=== PATIENT | female | born 1990 | race Caucasian/White ===

== ENCOUNTER → 2020-05-03 | Outpatient (CLI) | payer SELFPAY | LOC: LAB SHORT 11:36 | DX: J06.9 Acute upper respiratory infection, unspecified (principal); Z20.828 Contact with and (suspected) exposure to other viral communicable diseases | CPT/HCPCS: U0003 ==

== ENCOUNTER → 2023-02-23 | Outpatient (CLI) | payer OTHER | LOC: LAB SHORT 15:20 → LAB 15:20 | DX: R82.90 Unspecified abnormal findings in urine (principal) | CPT/HCPCS: 87086 ==

== ENCOUNTER → 2023-03-30 | Outpatient (CLI) | payer OTHER ==
[2023-03-30 19:58] LABS: BASOPHILS ABSOLUTE AUTO 0.04 K/mm3 (0.00-0.23); BASOPHILS PERCENT AUTO 0 % (0-2); EOSINOPHILS ABSOLUTE AUTO 0.09 K/mm3 (0.00-0.68); EOSINOPHILS PERCENT AUTO 1 % (0-6); Hematocrit 40.7 % (33.0-51.0); IMMATURE GRAN ABSOLUTE AUTO 0.02 K/mm3 (0.00-0.10); IMMATURE GRAN PERCENT AUTO 0 % (0-1); LYMPHOCYTES ABSOLUTE AUTO 2.38 K/mm3 (0.84-5.20); LYMPHOCYTES PERCENT AUTO 27 % (21-46); MONOCYTES ABSOLUTE AUTO 0.52 K/mm3 (0.16-1.47); MONOCYTES PERCENT AUTO 6 % (4-13); Mean Corpuscular HGB 26.1 pg (26.0-34.0); Mean Corpuscular HGB Conc 31.9 g/dL (31.5-36.5); Mean Corpuscular Volume 82 fL (80-100); Mean Platelet Volume 12.7 fL (9.1-12.4); NEUTROPHILS ABSOLUTE AUTO 5.92 K/mm3 (1.96-9.15); NEUTROPHILS PERCENT AUTO 66 % (41-73); Platelet Count 193 K/mm3 (150-400); RDW Coefficient Variation 12.6 % (11.7-14.2); RDW Standard Deviation 37.4 fL (35.1-46.3); Red Blood Cell Count 4.99 M/mm3 (3.80-5.20); White Blood Cell Count 8.97 K/mm3 (4.00-11.30)
[2023-03-30 19:59] LABS: Appearance, Urine Turbid (Clear); Bilirubin, Urine Neg (Neg); Blood, Urine Neg (Neg); Color, Urine Yellow (P-Yellow); Glucose Qualitative, Urine Neg (Neg); Ketones, Urine Neg (Neg); Leukocyte Esterase, Urine Neg (Neg); Nitrite, Urine Neg (Neg); Protein, Urine 1+ (Neg); Specific Gravity, Urine 1.025 (1.003-1.022); Urobilinogen, Urine NORM (Normal)
[2023-03-30 20:20] LABS: Red Blood Cells, Urine Not Seen /hpf (0-2); White Blood Cells, Urine Not Seen /hpf (0-5)
[2023-03-30 20:21] LABS: Amorphous Heavy (0-Heavy); Bacteria Rare /hpf; Squamous Epithelial Cells Few /hpf (Few)
[2023-04-01 07:13] LABS: HIV AB/P24 AG SCREEN Non Reactive (Non Reactive)
[2023-04-01 08:13] LABS: HBSAG SCREEN Negative (Negative); HCV ANTIBODY Non Reactive (Non Reactive)
== END ==
LOC: LAB 16:40 → LAB SHORT 16:40
PROVIDERS: Registered Nurse Community Health
DX: Z34.91 Encounter for supervision of normal pregnancy, unspecified, first trimester (principal)
CPT/HCPCS: 80055; 81001; 84443; 84702; 86803; 87086; 87389

== ENCOUNTER 2024-07-11 08:47 | Day surgery (SDC) | payer OTHER ==
[~2024-07-11] VITALS: Ht 165.1 cm; Wt 83.8 kg
[~2024-07-11 08:47] MED LIST: Bupivacaine 0.5% HCl 5 MG/ML 30MLVIAL ONE; EPINEPhrine HCl 1 MG/ML 1ML Amp ONE; FentaNYL Citrate 50 MCG/ML 2 ML Injection ONE; Lactated Ringer's 1,000 ML IV ONE; Midazolam HCl 1MG / ML 2ML Vial ONE; propofoL 20 ML IV ONE
[2024-07-11] MEDS ORDERED: CeFAZolin Sodium 2,000 MG VIAL ONE (08:54)
[2024-07-11] MEDS ORDERED: Lactated Ringer's 1,000 ML IV ONE (09:21)
[2024-07-11] MEDS ORDERED: FentaNYL Citrate 50 MCG/ML 2 ML Injection ONE (09:45)
[2024-07-11] MEDS ORDERED: Bupivacaine 0.75% Inj 30 ML Vial ONE (09:54)
--- NOTE | 2024-07-11 10:02 | NUR ---
07/11/24 Brittany Boggs PATIENT HAD EXTENSIVE QUESTIONS FOR YOVANI LARIOS REGARDING MEDICATIONS SHE WOULD BE RECEIVING DURING SURGERY. YOVANI LARIOS ANSWERED ALL QUESTIONS AND OFFERED TO WRITE DOWN A LIST OF ALL MEDS PATIENT RECEIVES DURING TODAY'S SURGERY SHE IS BREAST FEEDING STILL. T/O PERFORMED AT BEDSIDE AT 0949 WITH YOVANI LARIOS AND RN LB PRIOR TO START OF PREOP NERVE BLOCK. YOVANI LARIOS ADMINISTERED TOTAL OF 100MCG FENTANYL PRIOR TO START OF BLOCK. BLOCK STARTED AT 0952 AND ENDED AT 0957. DURING BLOCK YOVANI LARIOS ASKED RN LB TO PULL A VIAL OF BUPIVACAINE FROM THE PYXIS. THIS WAS PULLED HOWEVER IT WAS NOT USED IN PREOP. THE VIAL WAS TAKEN BY YOVANI LARIOS
[2024-07-11] MEDS ORDERED: EPINEPhrine HCl 1 MG/ML 1ML Amp XX ONE ×2 (10:25)
[2024-07-11] MEDS ORDERED: Sugammadex Sodium 200 MG/2ML SDV (100 MG/ML) ONE (10:40)
[2024-07-11] MEDS ORDERED: Dexamethasone Sod Phos 10 MG/ML 1ML VIAL ONE (10:40)
[2024-07-11] MEDS ORDERED: Ondansetron HCl 2 MG / ML 2ML Vial ONE ×2 (10:40→11:28)
[2024-07-11] MEDS ORDERED: Ketorolac Tromethamine 30mg Vial ONE (10:41)
[2024-07-11 13:06] VITALS: BP 106/76
== END 2024-07-11 12:55 | disposition home or self-care (01) ==
LOC: ORSCSDS 08:47
PROVIDERS: Orthopaedic Surgery
PROC: 0RNJ4ZZ Release Right Shoulder Joint, Percutaneous Endoscopic Approach (ICD-10-PCS; principal; 2024-07-11 10:00)
DX: M71.9 Bursopathy, unspecified (principal); S46.011D Strain of muscle(s) and tendon(s) of the rotator cuff of right shoulder, subsequent encounter
CPT/HCPCS: J0171; J0690; J1100; J1885; J2250; J2405; J2704; J3010; J7120

== ENCOUNTER 2024-08-17 15:57 | Emergency (ER) | payer OTHER ==
[~2024-08-17] VITALS: Ht 162.6 cm; Wt 82.1 kg
[2024-08-17 16:24] VITALS: BP 130/96
[2024-08-17] MEDS ORDERED: Lidocaine 2% Viscous Soln 15 ML UDC PO ONE (19:30)
== END 2024-08-17 20:11 | disposition home or self-care (01) ==
LOC: ER 15:57
DX: R09.A2 Foreign body sensation, throat (principal)
CPT/HCPCS: 70360; 99283-25; A9270